=== PATIENT | female | born 1985 | race Caucasian/White ===

== ENCOUNTER 2017-11-25 17:50 | Emergency (ER) | payer OTHER ==
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
[2017-11-25] MEDS ORDERED: fentaNYL CITR 100 MCG/2 ML AMP IVP ONE (18:35)
[2017-11-25] MEDS ORDERED: KETOROLAC 30 MG/ML VIAL IVP ONE (19:00)
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
[2017-11-25 19:51] VITALS: BP 127/68
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
[2017-11-25] MEDS ORDERED: HYDR-4309 PO (20:35)
[2017-11-25] MEDS ORDERED: ACET/HYDROC 5/325MG TH ER ONLY 2 TAB/BOTTLE PO ONE (20:40)
== END 2017-11-25 20:59 | disposition home or self-care (01) ==
LOC: ER 18:07
DX: S50.11XA Contusion of right forearm, initial encounter (principal); S50.01XA Contusion of right elbow, initial encounter; V89.2XXA Person injured in unspecified motor-vehicle accident, traffic, initial encounter
CPT/HCPCS: 73060; 73090; 73200; 96374; 96375; 99284; A4565; J1885; J3010

== ENCOUNTER → 2017-11-25 | Outpatient (CLI) | payer OTHER ==
[~2017-11-25] MED LIST: HYDR-4309 PO
== END ==
LOC: AMB 17:07
PROVIDERS: ATTEND Nurse Practitioner
DX: M25.511 Pain in right shoulder (principal); R09.02 Hypoxemia; V49.9XXA Car occupant (driver) (passenger) injured in unspecified traffic accident, initial encounter
CPT/HCPCS: A0425; A0427